=== PATIENT | male | born 1980 | race African-American/Black ===

== ENCOUNTER 2017-02-16 10:39 | Emergency (ER) | payer OTHER ==
[~2017-02-16] VITALS: Ht 170.2 cm; Wt 56.8 kg
[2017-02-16 10:39] VITALS: BP 153/85
--- NOTE | 2017-02-16 10:50 | NUR ---
Patient to bed 04.
--- NOTE | 2017-02-16 10:52 | NUR ---
Patient being evaluated by Dr. Avelar at bedside.
--- NOTE | 2017-02-16 10:59 | NUR ---
Patient ambulated to XRAY with tech.
[2017-02-16] MEDS ORDERED: KETOROLAC 30 MG/ML VIAL IM ONE (11:00)
--- NOTE | 2017-02-16 11:00 | NUR ---
36/M c/o left 4th digit pain since yesterday. Pt states his finger got caught in his dog's leash. Ecchymosis noted to left 4th digit. CMS intact. Denies numbness and tingling. AOX4, ambulatory with steady gait. VSS.
--- NOTE | 2017-02-16 11:06 | NUR ---
Patient back from XRAY.
[2017-02-16 11:31] VITALS: BP 153/85
--- NOTE | 2017-02-16 11:31 | NUR ---
Patient discharged with v/s stable. Written and verbal after care instructions given and explained. Patient alert, oriented and verbalized understanding of instructions. Ambulatory with steady gait. All questions addressed prior to discharge. ID band removed. Patient advised to follow up with PMD. Rx of Naprosyn 500mg and Tylenol #3 given. Patient educated on indication of medication including possible reaction and side effects. Opportunity to ask questions provided and answered.
== END 2017-02-16 11:31 | disposition home or self-care (01) ==
LOC: MED 10:39
DX: S62.665A Nondisplaced fracture of distal phalanx of left ring finger, initial encounter for closed fracture (principal); J45.909 Unspecified asthma, uncomplicated; Z88.0 Allergy status to penicillin; W23.0XXA Caught, crushed, jammed, or pinched between moving objects, initial encounter; Y93.89 Activity, other specified; Y92.89 Other specified places as the place of occurrence of the external cause; Y99.8 Other external cause status
CPT/HCPCS: 29130; 73130; 96372; 99284; J1885

== ENCOUNTER 2017-12-15 09:44 | Emergency (ER) | payer OTHER ==
[~2017-12-15] VITALS: Ht 170.2 cm; Wt 61.7 kg
[2017-12-15 09:48] VITALS: BP 133/86
[2017-12-15] MEDS ORDERED: CLINDAMYCIN 600 MG/4 ML VIAL IM ONE (10:05)
[2017-12-15] MEDS ORDERED: ALBUTEROL SULFATE/IPRATROPIU 3 ML SOL IH ONE (10:05)
[2017-12-15] MEDS ORDERED: methylPREDNISolone SS 125 MG in WATER STERILE 2 ML IM ONE (10:05)
[2017-12-15 10:41] VITALS: BP 132/84
== END 2017-12-15 10:39 | disposition home or self-care (01) ==
LOC: MED 09:44
DX: J44.9 Chronic obstructive pulmonary disease, unspecified (principal); J45.901 Unspecified asthma with (acute) exacerbation; F17.210 Nicotine dependence, cigarettes, uncomplicated; Z88.0 Allergy status to penicillin
CPT/HCPCS: 94640; 96372; 99284; J2930; J3490; J7620